=== PATIENT | female | born 1970 | race Caucasian/White ===

== ENCOUNTER 2017-06-19 17:38 | Emergency (ER) | payer OTHER ==
[~2017-06-19] VITALS: Ht 160 cm; Wt 72.6 kg
--- NOTE | ~2017-06-19 | CR142 ---
[facility] A Service of [facility] & [facility] RADIOLOGY TEXT RESULTS PATIENT: JOSE ANTONIO GOMES LOCATION: SED : 68 UNIT #: [id number] AGE: [address]: DINO RICO SEX: F ORDER DR: [id number] [place] [id number] E MR#: [id number] Acc #: [id number] NAME: JOSE ANTONIO GOMES. : 1970 SEX: F STUDY DATE/TIME: 06/19/2017 20:00 UNIT: SED ROOM: STUDY DESCRIPTION: CR Hand Min 3 Views Rt Attending Physician: Dino Rico Aprn Ordering Physician: Dino Rico Aprn MEDICAL IMAGING REPORT This report is preliminary unless electronic signature is present. EXAM Right hand, 3 views. COMPARISON 39-year-old female with swelling and pain at the posterior hand at the level of the metacarpals after laceration from dog bite last night. FINDINGS There is diffuse osteopenia. There is no radiopaque foreign body. Bones are anatomically aligned. Mild degenerative change at the first carpometacarpal joint. Mild degenerative change at the second distal interphalangeal joint. IMPRESSION No acute fracture, dislocation, or radiopaque foreign body. Mild degenerative changes of the hand. Findings suggestive of osteopenia. Clinical correlation recommended. Dictated by... Jakob Bowles M.D. THIS IS AN ELECTRONICALLY VERIFIED REPORT Jakob Bowles M.D. at 06/26/2017 9:30 AM Maciel TD: 06/19/2017 23:51 JOB #: [id number] MEDICAL IMAGING REPORT Page 1 of 1
== END 2017-06-19 21:16 | disposition home or self-care (01) ==
LOC: SED 17:38
DX: S61.411A Laceration without foreign body of right hand, initial encounter (principal); I10 Essential (primary) hypertension; J45.909 Unspecified asthma, uncomplicated; J44.9 Chronic obstructive pulmonary disease, unspecified; E78.5 Hyperlipidemia, unspecified; W54.0XXA Bitten by dog, initial encounter
CPT/HCPCS: 73130; 99283